=== PATIENT | female | born 1970 | race Caucasian/White ===

== ENCOUNTER 2018-09-15 11:34 | Day surgery (SDC) | payer BC ==
[2018-09-15] MEDS: SOD CHLORIDE 0.9% 1,000 ML IV (12:54)
[2018-09-15 12:56] LABS: ADD MAN DIFF? NO
[2018-09-15 12:58] LABS: BASOPHILS % 0.6 % (0.0-2.0); EOSINOPHILS # 0.1 10^3/ul (0.0-0.5); EOSINOPHILS % 1.4 % (0.0-7.0); HEMATOCRIT 40.3 % (37.0-47.0); HEMOGLOBIN 13.7 g/dl (12.0-16.0); LYMPHOCYTES # 2.1 10^3/ul (0.8-2.9); LYMPHOCYTES % 33.2 % (15.0-51.0); MEAN CORPUSCULAR HEMOGLOBIN 29.3 pg (29.0-33.0); MEAN CORPUSCULAR VOLUME 86.1 fl (82.0-101.0); MEAN PLATELET VOLUME 9.2 fl (7.4-10.4); MONOCYTE # 0.5 10^3/ul (0.3-0.9); MONOCYTES % 7.5 % (0.0-11.0); NEUTROPHIL # 3.7 10^3/ul (1.6-7.5); PLATELET COUNT 305 10^3/UL (140-415); RED BLOOD COUNT 4.68 10^6/ul (4.20-5.40); RED CELL DISTRIBUTION WIDTH 12.6 % (11.5-14.5)
[2018-09-15 12:58] LABS: WHITE BLOOD COUNT 6.4 10^3/ul (4.8-10.8)
[2018-09-15 13:14] LABS: ALANINE AMINOTRANSFERASE 37 IU/L (13-69); ALBUMIN 4.3 g/dl (3.3-4.9); ALBUMIN/GLOBULIN RATIO 1.19; ALKALINE PHOSPHATASE 69 IU/L (42-121); ANION GAP 9 (5-13); ASPARTATE AMINO TRANSFERASE 28 IU/L (15-46); BILIRUBIN,INDIRECT 1.4 mg/dl (0-1.1); BILIRUBIN,TOTAL 1.4 mg/dl (0.2-1.3); BLOOD UREA NITROGEN 13 mg/dl (7-20); CALCIUM 9.3 mg/dl (8.4-10.2); CARBON DIOXIDE 27 mmol/L (21-31); CHLORIDE 108 mmol/L (97-110); CREATININE 0.63 mg/dl (0.44-1.00); Estimated GFR > 60 mL/min (>60); GLUCOSE 92 mg/dl (70-220); POTASSIUM 3.7 mmol/L (3.5-5.1); SODIUM 144 mmol/L (135-144); TOTAL PROTEIN 7.9 g/dl (6.1-8.1)
[2018-09-15 13:19] LABS: INR 0.91; PARTIAL THROMBOPLASTIN TIME 26.4 Sec (23.0-35.0); PROTIME 12.4 Sec (11.9-14.9)
[2018-09-15] MEDS ORDERED: PROPOFOL 20 ML (14:27)
[2018-09-15] MEDS ORDERED: ROCURONIUM 50 MG INJ (14:29)
[2018-09-15] MEDS: CEFAZOLIN 1 GM/50 ML (PMX) 50 ML IVPB (14:40)
[2018-09-15] MEDS ORDERED: DEXAMETHASONE 4 MG/ML 5 ML INJ (14:44)
[2018-09-15] MEDS ORDERED: CEFAZOLIN 1 GM INJ (14:44)
[2018-09-15] MEDS ORDERED: LIDOCAINE 2% (SDV) 5 ML INJ (14:44)
[2018-09-15] MEDS ORDERED: ONDANSETRON 4 MG INJ (14:44)
[2018-09-15] MEDS ORDERED: BUPIVACAINE 0.25%/EPI (SDV) 30 ML INJ (14:48)
[2018-09-15] MEDS ORDERED: SUGAMMADEX SODIUM 200 MG/2 ML VIAL IV (15:00)
[2018-09-15] MEDS: BUPIVACAINE 0.25% (STERILE-PAK) 30 ML INJ INJ ×2 (15:18)
[2018-09-15] MEDS: BACITRACIN/POLYMYXIN 28.35 GM OINT TOP (15:21)
[2018-09-15] MEDS ORDERED: EPHEDrine 25 MG/5 ML SYG IV (15:30)
[2018-09-15] MEDS ORDERED: MIDAZOLAM 1 MG/ML 2 ML INJ IV (15:30)
[2018-09-15] MEDS ORDERED: LABETALOL HCL 20MG INJ IV (15:30)
[2018-09-15] MEDS ORDERED: KETOROLAC 30 MG INJ IV ×2 (15:30)
[2018-09-15] MEDS ORDERED: MEPERIDINE 25 MG INJ IV (15:30)
[2018-09-15] MEDS ORDERED: ALBUTEROL 0.083% (NEB) 2.5 MG/3 ML AMP HHN (15:30)
[2018-09-15] MEDS ORDERED: hydrALAzine 20 MG INJ IV (15:30)
[2018-09-15] MEDS ORDERED: FENTAnyl 50 MCG/ML VIAL IV ×3 (15:30)
[2018-09-15] MEDS ORDERED: HYDROmorphONE 1 MG/5 ML IV SYRINGE IV ×3 (15:30)
[2018-09-15] MEDS ORDERED: DIPHENHYDRAMINE 50 MG INJ IV (15:30)
[2018-09-15] MEDS ORDERED: IBUPROFEN 600 MG TAB PO (15:30)
[2018-09-15] MEDS ORDERED: ONDANSETRON 4 MG INJ IV ×2 (15:30)
[2018-09-15] MEDS ORDERED: OXYCODONE/ACETAMINOPHEN (5/325) TAB PO ×2 (15:30)
[2018-09-15] MEDS ORDERED: morphine 2 MG INJ IV (15:30)
[2018-09-15] MEDS ORDERED: METOCLOPRAMIDE 10 MG INJ IV (15:30)
== END 2018-09-15 17:30 | disposition home or self-care (01) ==
LOC: SDS 11:34
DX: K64.0 First degree hemorrhoids (principal); F32.9 Major depressive disorder, single episode, unspecified
CPT/HCPCS: 46255; 80053; 84703; 85025; 85610; 85730; 88304